=== PATIENT | female | born 1935 | race Caucasian/White ===

== ENCOUNTER 2019-12-09 12:37 | Outpatient (CLI) | payer MEDICARE, MEDICAID | END 2019-12-09 23:59 | disposition home or self-care (01) | LOC: CARD DIAG 12:37 | PROVIDERS: ATTEND Internal Medicine Cardiovascular Disease | DX: I08.3 Combined rheumatic disorders of mitral, aortic and tricuspid valves (principal) | CPT/HCPCS: 93306 ==